=== PATIENT | male | born 1965 | race Caucasian/White ===

== ENCOUNTER 2018-01-25 16:43 | Emergency (ER) | payer MEDICARE ==
[2018-01-25] MEDS ORDERED: OMEP40CA48 PO (16:58)
[2018-01-25] MEDS ORDERED: ZIPR80CA PO (16:58)
--- NOTE | 2018-01-25 16:59 | ER Report ---
History and Physical Time Seen By MD: 16:57 Hx. of Stated Complaint: SUDDEN DIZZINESS A COUPLE HOURS AGO. HARD TO STAND, WALK (HARPER TRACEY MD) HPI/ROS CHIEF COMPLAINT: Dizziness HISTORY OF PRESENT ILLNESS: Patient is an 82-year-old male history of an [place] 6 years ago comes emergency prompt today with acute onset of positional vertiginous dizziness type symptoms he was walking to the park with his daughter and began to get acutely dizzy worse when he changes head position better when he sat down worse when he bent forward and felt a little bit better after walking around and sitting down for a few moments had some ice cream then went home felt a little better than he came back again patient states states was couple days been outside working in the heat to try to keep his fluids patient denies any chest pain shortness of breath nausea vomiting diarrhea fever chills since his symptoms are absolutely 100% completely reproducible with changes in head position REVIEW OF SYSTEMS: Respiratory: No cough, no dyspnea. Cardiovascular: No chest pain, no palpitations. Gastrointestinal: No vomiting, no abdominal pain. Musculoskeletal: No back pain. Remainder of the 14 system rev: Yes (HARPER TRACEY MD) Allergies: Coded Allergies: Penicillins (Verified Allergy, Unknown, 01/25/18) Home Meds Reported Medications Ziprasidone Hcl (GEODON) 80 Mg Capsule, 80 MG PO, CAPSULE 01/25/18 Omeprazole (OMEPRAZOLE) 40 Mg Capsule.dr, 40 MG PO BID, CAP 01/25/18 Reviewed Nurses Notes: Yes Old Medical Records Reviewed: Yes (HARPER TRACEY MD) Constitutional Vital Sign - Last 24 Hours 01/25/18 01/25/18 01/25/18 01/25/18 16:43 16:47 16:48 16:58 Temp 99.4 Pulse 92 98 94 Resp 18 20 B/P (MAP) 161/92 (115) 119/84 (96) 119/84 Pulse Ox 94 96 92 O2 Delivery Room Air 01/25/18 01/25/18 01/25/18 01/25/18 17:00 17:09 17:13 17:13 Pulse ??? Resp 18 B/P (MAP) ???/??? (0805) 114/84 (94) Pulse Ox 97 O2 Flow Rate 2.0 01/25/18 01/25/18 01/25/1801/25/18 17:28 17:30 17:43 17:58 Pulse ??? 84 87 Resp 13 30 B/P (MAP) 131/79 (96) Pulse Ox 98 98 01/25/18 01/25/18 01/25/18 01/25/18 18:03 18:18 18:23 18:30 Pulse 81 81 83 Resp 25 17 17 B/P (MAP) 114/85 (95) Pulse Ox 97 97 97 01/25/18 01/25/18 01/25/18 01/25/18 18:38 18:50 18:53 18:58 Pulse 84 76 78 Resp 20 21 26 B/P (MAP) 132/78 (96) Pulse Ox 97 97 96 01/25/18 01/25/18 01/25/18 01/25/18 19:00 19:05 19:30 19:35 Pulse 82 81 Resp 28 16 B/P (MAP) 121/78 (92) 121/77 (92) Pulse Ox 95 96 01/25/18 19:40 Pulse 76 Resp 19 Pulse Ox 96 (ANISH NIEVES DO) Physical Exam General Appearance: The patient is alert, has no immediate need for airway protection and no current signs of toxicity. Difficulty walking due to dizziness Eyes: Pupils equal and round no injection. Respiratory: Chest is non tender, lungs are clear to auscultation. Cardiac: regular rate and rhythm [ ] Gastrointestinal: Abdomen is soft and non tender, no masses, bowel sounds normal. Musculoskeletal: Neck: Neck is supple and non tender. Extremities have full range of motion and are non tender. Skin: No rashes or lesions. Neurological examination patient with no focal neurological deficits completely reproducible vertiginous symptoms when he looks to the right they are gone when he looks to the left there present worse with changes in head position no obvious vertical or horizontal nystagmus no other focal deficits cranial nerves II through XII fully intact GCS of 15 DIFFERENTIAL DIAGNOSIS: After history and physical exam differential diagnosis was considered for benign paroxysmal positional vertigo cardiac abnormality (HARPER TRACEY MD) Medical Decision Making Data Points Result Diagram: 01/25/18 1700 01/25/18 1700 Laboratory Hematology Test 01/25/18 17:00 01/25/18 18:07 Red Blood Count 5.69 M/uL (4.00-5.60) Mean Corpuscular Volume 81.1 fL (80.0-96.0) Mean Corpuscular Hemoglobin 27.6 pg (26.0-33.0) Mean Corpuscular Hemoglobin Concent 34.0 g/dL (32.0-36.0) Red Cell Distribution Width 14.0 % (11.5-14.5) Mean Platelet Volume 7.6 fL (7.2-11.1) Neutrophils (%) (Auto) 60.0 % (39.4-72.5) Lymphocytes (%) (Auto) 24.0 % (17.6-49.6) Monocytes (%) (Auto) 10.6 % (4.1-12.4) Eosinophils (%) (Auto) 3.0 % (0.4-6.7) Basophils (%) (Auto) 2.4 % (0.3-1.4) Nucleated RBC Relative Count (auto) 0.0 /100WBC Neutrophils # (Auto) 5.8 K/uL (2.0-7.4) Lymphocytes # (Auto) 2.3 K/uL (1.3-3.6) Monocytes # (Auto) 1.0 K/uL (0.3-1.0) Eosinophils # (Auto) 0.3 K/uL (0.0-0.5) Basophils # (Auto) 0.2 K/uL (0.0-0.1) Nucleated RBC Absolute Count (auto) 0.00 K/uL Sodium Level 142 mmol/L (137-145) Potassium Level 3.7 mmol/L (3.5-5.0) Chloride Level 107 mmol/L (98-107) Carbon Dioxide Level 23 mmol/L (22-30) Blood Urea Nitrogen 19 mg/dl (9-21) Creatinine 1.00 mg/dl (0.66-1.25) Glomerular Filtration Rate Calc > 60.0 Random Glucose 116 mg/dl (75-110) Calcium Level 9.1 mg/dl (8.4-10.2) Total Bilirubin 0.8 mg/dl (0.2-1.3) Aspartate Amino Transf (AST/SGOT) 47 U/L (0-35) Alanine Aminotransferase (ALT/SGPT) 46 U/L (0-56) Alkaline Phosphatase 83 U/L (0-126) Troponin I < 0.012 ng/ml Total Protein 7.4 g/dl (6.3-8.2) Albumin 4.2 g/dl (3.5-5.0) Serum Alcohol < 10 mg/dl Urine Color Yellow Urine Clarity Clear Urine pH 5.0 pH (4.8-9.5) Urine Specific [place] 1.028 Urine Protein Negative mg/dL (NEGATIVE) Urine Glucose (UA) Negative mg/dL (NEGATIVE) Urine Ketones Negative mg/dL (NEGATIVE) Urine Blood Negative (NEGATIVE) Urine Nitrite Negative (NEGATIVE) Urine Bilirubin Negative (NEGATIVE) Urine Urobilinogen 2.0 mg/dL (0.2-1.9) Urine Leukocyte Esterase Negative (NEGATIVE) Urine RBC None /HPF (0-2/HPF) Urine WBC 7 /HPF (0-5/HPF) Urine Squamous Epithelial Cells None /LPF (</=FEW) Urine Bacteria Negative /HPF (NONE-FEW) Urine Hyaline Casts Few /LPF (NONE-FEW) Urine Mucus Few /HPF (NONE-FEW) Urine Opiates Screen Negative Urine Barbiturates Screen Negative Ur Tricyclic Antidepressants Screen Negative Urine Phencyclidine Screen Negative Urine Amphetamines Screen Negative Urine Benzodiazepines Screen Negative Urine Cocaine Screen Negative Urine Cannabinoids Screen Negative Chemistry Test 01/25/18 17:00 01/25/18 18:07 White Blood Count 9.8 k/uL (4.5-11.0) Red Blood Count 5.69 M/uL (4.00-5.60) Hemoglobin 15.7 g/dL (14.0-18.0) Hematocrit 46.2 % (42.0-52.0) Mean Corpuscular Volume 81.1 fL (80.0-96.0) Mean Corpuscular Hemoglobin 27.6 pg (26.0-33.0) Mean Corpuscular Hemoglobin Concent 34.0 g/dL (32.0-36.0) Red Cell Distribution Width 14.0 % (11.5-14.5) Platelet Count 274 K/uL (150-450) Mean Platelet Volume 7.6 fL (7.2-11.1) Neutrophils (%) (Auto) 60.0 % (39.4-72.5) Lymphocytes (%) (Auto) 24.0 % (17.6-49.6) Monocytes (%) (Auto) 10.6 % (4.1-12.4) Eosinophils (%) (Auto) 3.0 % (0.4-6.7) Basophils (%) (Auto) 2.4 % (0.3-1.4) Nucleated RBC Relative Count (auto) 0.0 /100WBC Neutrophils # (Auto) 5.8 K/uL (2.0-7.4) Lymphocytes # (Auto) 2.3 K/uL (1.3-3.6) Monocytes # (Auto) 1.0 K/uL (0.3-1.0) Eosinophils # (Auto) 0.3 K/uL (0.0-0.5) Basophils # (Auto) 0.2 K/uL (0.0-0.1) Nucleated RBC Absolute Count (auto) 0.00 K/uL Glomerular Filtration Rate Calc > 60.0 Calcium Level 9.1 mg/dl (8.4-10.2) Total Bilirubin 0.8 mg/dl (0.2-1.3) Aspartate Amino Transf (AST/SGOT) 47 U/L (0-35) Alanine Aminotransferase (ALT/SGPT) 46 U/L (0-56) Alkaline Phosphatase 83 U/L (0-126) Troponin I < 0.012 ng/ml Total Protein 7.4 g/dl (6.3-8.2) Albumin 4.2 g/dl (3.5-5.0) Serum Alcohol < 10 mg/dl Urine Color Yellow Urine Clarity Clear Urine pH 5.0 pH (4.8-9.5) Urine Specific [place] 1.028 Urine Protein Negative mg/dL (NEGATIVE) Urine Glucose (UA) Negative mg/dL (NEGATIVE) Urine Ketones Negative mg/dL (NEGATIVE) Urine Blood Negative (NEGATIVE) Urine Nitrite Negative (NEGATIVE) Urine Bilirubin Negative (NEGATIVE) Urine Urobilinogen 2.0 mg/dL (0.2-1.9) Urine Leukocyte Esterase Negative (NEGATIVE) Urine RBC None /HPF (0-2/HPF) Urine WBC 7 /HPF (0-5/HPF) Urine Squamous Epithelial Cells None /LPF (</=FEW) Urine Bacteria Negative /HPF (NONE-FEW) Urine Hyaline Casts Few /LPF (NONE-FEW) Urine Mucus Few /HPF (NONE-FEW) Urine Opiates Screen Negative Urine Barbiturates Screen Negative Ur Tricyclic Antidepressants Screen Negative Urine Phencyclidine Screen Negative Urine Amphetamines Screen Negative Urine Benzodiazepines Screen Negative Urine Cocaine Screen Negative Urine Cannabinoids Screen Negative Toxicology Test 01/25/18 17:00 01/25/18 18:07 Serum Alcohol < 10 mg/dl Urine Opiates Screen Negative Urine Barbiturates Screen Negative Ur Tricyclic Antidepressants Screen Negative Urine Phencyclidine Screen Negative Urine Amphetamines Screen Negative Urine Benzodiazepines Screen Negative Urine Cocaine Screen Negative Urine Cannabinoids Screen Negative Urinalysis Test 01/25/18 18:07 Urine Color Yellow Urine Clarity Clear Urine pH 5.0 pH (4.8-9.5) Urine Specific [place] 1.028 Urine Protein Negative mg/dL (NEGATIVE) Urine Glucose (UA) Negative mg/dL (NEGATIVE) Urine Ketones Negative mg/dL (NEGATIVE) Urine Blood Negative (NEGATIVE) Urine Nitrite Negative (NEGATIVE) Urine Bilirubin Negative (NEGATIVE) Urine Urobilinogen 2.0 mg/dL (0.2-1.9) Urine Leukocyte Esterase Negative (NEGATIVE) Urine RBC None /HPF (0-2/HPF) Urine WBC 7 /HPF (0-5/HPF) Urine Squamous Epithelial Cells None /LPF (</=FEW) Urine Bacteria Negative /HPF (NONE-FEW) Urine Hyaline Casts Few /LPF (NONE-FEW) Urine Mucus Few /HPF (NONE-FEW) (ANISH NIEVES DO) EKG/Imaging Imaging X-ray: Two-view chest x-ray was obtained. I viewed the images myself on the PACS system. My interpretation of the images is: No infiltrate, no effusion, normal mediastinum, notable kyphosis. The radiologist interpretation had no clinically significant variation from this interpretation. (ANISH NIEVES DO) ED Course/Re-evaluation ED Course Care was assumed at shift change from Dr. Tracey with further studies pending. Patient's chest x-ray was unremarkable. His urine and urine tox screen were unremarkable. Patient woke up from the Valium dose that he received. He ambulated to the bathroom. Complaining of a headache. He was given Toradol 30 mg IV for his pain. Patient reports improvement of his headache. Decision to Disposition Date: Jan 25, 2018 Decision to Disposition Time: 18:44 (ANISH NIEVES DO) Depart Departure Latest Vital Signs Vital Signs Date Time Temp Pulse Resp B/P (MAP) Pulse Ox O2 Delivery O2 Flow Rate FiO2 01/25/18 19:40 76 19 96 01/25/18 19:30 121/77 (92) 01/25/18 17:13 2.0 01/25/18 16:48 99.4 Room Air (ANISH NIEVES DO) Impression: Primary Impression: Vertigo Additional Impression: Near syncope Condition: Improved Disposition: HOME OR SELF-CARE Referrals: RAMBO MATIAS JR, MD Patient Instructions: Vertigo (ED) Additional Instructions: Take meclizine 25 mg 3 times daily for dizziness Follow-up with primary care or Dr. Rambo Matias ENT specialist if unimproved in 3-5 days Problem Qualifiers HARPER TRACEY MD Jan 25, 2018 16:59 ANISH NIEVES DO Jan 25, 2018 18:47
[2018-01-25] MEDS ORDERED: DIAZEPAM 50 MG/10 ML MDV IVP ONE (17:00)
[2018-01-25] MEDS ORDERED: NS(*) 0.9% 1000 ML BAG 1,000 ML IV ONE (17:00)
[2018-01-25 17:09] LABS: PLATELET COUNT, AUTOMATED 274 K/uL (150-450)
--- NOTE | 2018-01-25 17:29 | EKG ---
[place] [facility] [place] SAAD SANTIAGO : [id number] MR: [id number] V: [id number] EXAM DATE: ORDERING PHYSICIAN: HARPER TRACEY TECHNOLOGIST: RICKIE Robins Reason : DIZZY Blood Pressure : / mmHG Vent. Rate : 101 BPM Atrial Rate : 101 BPM P-R Int : 136 ms QRS Dur : 088 ms QT Int : 348 ms P-R-T Axes : 041 015 027 degrees QTc Int : 451 ms Sinus tachycardia Possible left atrial enlargement No previous ECGs available Confirmed by GREGORIO AUGUSTIN ([id number]) on 01/26/2018 5:41:09 AM Referred By: ALEXY Confirmed By:GREGORIO AUGUSTIN
--- NOTE | 2018-01-25 17:53 | RADIOLOGY IMAGING REPORT ---
FACILITY: [facility] - [place] PATIENT NAME: Celso Pérez : 1965 MR: [id number] V: [id number] EXAM DATE: ORDERING PHYSICIAN: HARPER TRACEY TECHNOLOGIST: Location: [facility] - [place] Patient: Celso Pérez : 1965 Visit/Account:[id number] Date of Sevice: 01/25/2018 HISTORY: Chest pain DATE: 01/25/2018 4:56 PM TECHNIQUE: CHEST PA AND LAT COMPARISON: none FINDINGS: The cardiomediastinal silhouette is of normal size and contour. No pleural effusion. No pne umothorax. No consolidation. The lungs are adequately expanded. Thoracic kyphosis is moderately exagg erated. Bone density is diffusely decreased in the thoracic spine. There are numerous tacks from pres umed hernia repair. IMPRESSION: No acute findings. Report Dictated By: Abbey Lan MD at 01/25/2018 5:49 PM Report E-Signed By: Abbey Lan MD at 01/25/2018 5:49 PM WSN:[id number]
[2018-01-25] MEDS ORDERED: KETOROLAC 30 MG/ML VIAL IVP ONE (18:40)
[2018-01-25 19:30] VITALS: BP 121/77
== END 2018-01-25 20:00 | disposition home or self-care (01) ==
LOC: ER 16:49
DX: R42 Dizziness and giddiness (principal); R55 Syncope and collapse; R00.0 Tachycardia, unspecified
CPT/HCPCS: 71046; 80305; 81001; 84484; 85025; 93005; 96361; 96374; 96375; 99284; G0480; J1885; J3360; J7030; 80320; 82040; 82247; 82310; 82374; 82435; 82565; 82947; 84075; 84132; 84155; 84295; 84450; 84460; 84520

== ENCOUNTER 2018-01-28 09:09 | Inpatient (IN) | payer MEDICARE, MEDICAID ==
[~2018-01-28] VITALS: Ht 160 cm; Wt 83.5 kg
[~2018-01-28 09:09] MED LIST: OMEP40CA48 PO; ZIPR80CA PO
--- NOTE | 2018-01-28 09:14 | ER Report ---
History and Physical Time Seen By MD: 09:14 HPI/ROS 52-year-old male with a remote history of ureteral calculi and a past medical history significant for a mood disorder and GERD. He recently moved to [place] from [place] in early December. He presents to the emergency department with a 24-hour history of acute onset of right sided flank right lower quadrant pain radiating to his right groin. No trauma. No dysuria or hematuria. No fever or chills. Also with nausea and vomiting. He is having normal bowel movements. He describes the pain as 10 on a 10 and colicky in nature. He has no other complaints Allergies: Coded Allergies: Penicillins (Verified Allergy, Unknown, 01/25/18) Home Meds Reported Medications Ziprasidone Hcl (GEODON) 80 Mg Capsule, 80 MG PO, CAPSULE 01/25/18 Omeprazole (OMEPRAZOLE) 40 Mg Capsule.dr, 40 MG PO BID, CAP 01/25/18 Reviewed Nurses Notes: Yes Old Medical Records Reviewed: Yes Hx Smoking: No Smoking Status: Never Smoker Hx Substance Use Disorder: No Hx Alcohol Use: No Constitutional Vital Sign - Last 24 Hours 01/28/18 01/28/18 01/28/18 01/28/18 09:19 09:30 09:45 09:45 Temp 97.3 Pulse 67 67 65 Resp 16 B/P (MAP) 121/76 (91) 117/78 (91) 117/78 Pulse Ox 92 93 93 O2 Delivery Room Air 01/28/18 01/28/18 01/28/18 01/28/18 10:00 10:15 10:30 10:45 Pulse 67 70 69 66 B/P (MAP) 122/81 (95) 135/85 (102) Pulse Ox 92 92 92 92 01/28/18 01/28/18 01/28/18 01/28/18 11:00 11:15 11:33 11:45 Pulse 67 66 61 B/P (MAP) 123/89 (100) 131/75 (93) Pulse Ox 91 92 92 01/28/18 01/28/18 12:00 12:15 Pulse 63 67 B/P (MAP) 120/80 (93) Pulse Ox 93 88 Intake and Output 01/28/18 01/28/18 01/29/18 14:59 22:59 06:59 Intake Total 1000 ml Balance 1000 ml Physical Exam General Appearance: The patient is alert, has no immediate need for airway protection and no current signs of toxicity. Eyes: Pupils equal and round no injection. Respiratory: Chest is non tender, lungs are clear to auscultation. Cardiac: regular rate and rhythm Gastrointestinal: Abdomen is soft . RLQ TTP without rebound/guarding . Normal exam. No testicular TTP, no hernia MSK: TTP of the right flank Skin: No rashes or lesions. DIFFERENTIAL DIAGNOSIS: After history and physical exam differential diagnosis was considered for ureteral calculi, pyelonephritis, UTI, appendicitis Medical Decision Making Data Points Result Diagram: 01/28/18 0955 01/28/18 0955 Laboratory Hematology Test 01/28/18 09:10 01/28/18 09:55 Urine Color Yellow Urine Clarity Cloudy Urine pH 5.0 pH (4.8-9.5) Urine Specific [place] 1.020 Urine Protein 30 mg/dL (NEGATIVE) Urine Glucose (UA) Negative mg/dL (NEGATIVE) Urine Ketones Negative mg/dL (NEGATIVE) Urine Blood Large (NEGATIVE) Urine Nitrite Negative (NEGATIVE) Urine Bilirubin Negative (NEGATIVE) Urine Urobilinogen 2.0 mg/dL (0.2-1.9) Urine Leukocyte Esterase Negative (NEGATIVE) Urine RBC 413 /HPF (0-2/HPF) Urine WBC 4 /HPF (0-5/HPF) Urine Squamous Epithelial Cells None /LPF (</=FEW) Urine Bacteria Negative /HPF (NONE-FEW) Urine Mucus Few /HPF (NONE-FEW) Urine Yeast (Budding) Few /HPF Red Blood Count 5.65 M/uL (4.00-5.60) Mean Corpuscular Volume 82.4 fL (80.0-96.0) Mean Corpuscular Hemoglobin 27.7 pg (26.0-33.0) Mean Corpuscular Hemoglobin Concent 33.6 g/dL (32.0-36.0) Red Cell Distribution Width 13.6 % (11.5-14.5) Mean Platelet Volume 7.4 fL (7.2-11.1) Neutrophils (%) (Auto) 60.1 % (39.4-72.5) Lymphocytes (%) (Auto) 25.8 % (17.6-49.6) Monocytes (%) (Auto) 8.3 % (4.1-12.4) Eosinophils (%) (Auto) 4.1 % (0.4-6.7) Basophils (%) (Auto) 1.7 % (0.3-1.4) Nucleated RBC Relative Count (auto) 0.0 /100WBC Neutrophils # (Auto) 5.7 K/uL (2.0-7.4) Lymphocytes # (Auto) 2.5 K/uL (1.3-3.6) Monocytes # (Auto) 0.8 K/uL (0.3-1.0) Eosinophils # (Auto) 0.4 K/uL (0.0-0.5) Basophils # (Auto) 0.2 K/uL (0.0-0.1) Nucleated RBC Absolute Count (auto) 0.00 K/uL Sodium Level 139 mmol/L (137-145) Potassium Level 4.4 mmol/L (3.5-5.0) Chloride Level 108 mmol/L (98-107) Carbon Dioxide Level 20 mmol/L (22-30) Blood Urea Nitrogen 11 mg/dl (9-21) Creatinine 0.80 mg/dl (0.66-1.25) Glomerular Filtration Rate Calc > 60.0 Random Glucose 107 mg/dl (75-110) Calcium Level 8.4 mg/dl (8.4-10.2) Total Bilirubin 0.5 mg/dl (0.2-1.3) Aspartate Amino Transf (AST/SGOT) 46 U/L (0-35) Alanine Aminotransferase (ALT/SGPT) 34 U/L (0-56) Alkaline Phosphatase 85 U/L (0-126) Total Protein 6.9 g/dl (6.3-8.2) Albumin 3.8 g/dl (3.5-5.0) Lipase 193 U/L (23-300) Chemistry Test 01/28/18 09:10 01/28/18 09:55 Urine Color Yellow Urine Clarity Cloudy Urine pH 5.0 pH (4.8-9.5) Urine Specific [place] 1.020 Urine Protein 30 mg/dL (NEGATIVE) Urine Glucose (UA) Negative mg/dL (NEGATIVE) Urine Ketones Negative mg/dL (NEGATIVE) Urine Blood Large (NEGATIVE) Urine Nitrite Negative (NEGATIVE) Urine Bilirubin Negative (NEGATIVE) Urine Urobilinogen 2.0 mg/dL (0.2-1.9) Urine Leukocyte Esterase Negative (NEGATIVE) Urine RBC 413 /HPF (0-2/HPF) Urine WBC 4 /HPF (0-5/HPF) Urine Squamous Epithelial Cells None /LPF (</=FEW) Urine Bacteria Negative /HPF (NONE-FEW) Urine Mucus Few /HPF (NONE-FEW) Urine Yeast (Budding) Few /HPF White Blood Count 9.5 k/uL (4.5-11.0) Red Blood Count 5.65 M/uL (4.00-5.60) Hemoglobin 15.6 g/dL (14.0-18.0) Hematocrit 46.6 % (42.0-52.0) Mean Corpuscular Volume 82.4 fL (80.0-96.0) Mean Corpuscular Hemoglobin 27.7 pg (26.0-33.0) Mean Corpuscular Hemoglobin Concent 33.6 g/dL (32.0-36.0) Red Cell Distribution Width 13.6 % (11.5-14.5) Platelet Count 263 K/uL (150-450) Mean Platelet Volume 7.4 fL (7.2-11.1) Neutrophils (%) (Auto) 60.1 % (39.4-72.5) Lymphocytes (%) (Auto) 25.8 % (17.6-49.6) Monocytes (%) (Auto) 8.3 % (4.1-12.4) Eosinophils (%) (Auto) 4.1 % (0.4-6.7) Basophils (%) (Auto) 1.7 % (0.3-1.4) Nucleated RBC Relative Count (auto) 0.0 /100WBC Neutrophils # (Auto) 5.7 K/uL (2.0-7.4) Lymphocytes # (Auto) 2.5 K/uL (1.3-3.6) Monocytes # (Auto) 0.8 K/uL (0.3-1.0) Eosinophils # (Auto) 0.4 K/uL (0.0-0.5) Basophils # (Auto) 0.2 K/uL (0.0-0.1) Nucleated RBC Absolute Count (auto) 0.00 K/uL Glomerular Filtration Rate Calc > 60.0 Calcium Level 8.4 mg/dl (8.4-10.2) Total Bilirubin 0.5 mg/dl (0.2-1.3) Aspartate Amino Transf (AST/SGOT) 46 U/L (0-35) Alanine Aminotransferase (ALT/SGPT) 34 U/L (0-56) Alkaline Phosphatase 85 U/L (0-126) Total Protein 6.9 g/dl (6.3-8.2) Albumin 3.8 g/dl (3.5-5.0) Lipase 193 U/L (23-300) Urinalysis Test 01/28/18 09:10 Urine Color Yellow Urine Clarity Cloudy Urine pH 5.0 pH (4.8-9.5) Urine Specific [place] 1.020 Urine Protein 30 mg/dL (NEGATIVE) Urine Glucose (UA) Negative mg/dL (NEGATIVE) Urine Ketones Negative mg/dL (NEGATIVE) Urine Blood Large (NEGATIVE) Urine Nitrite Negative (NEGATIVE) Urine Bilirubin Negative (NEGATIVE) Urine Urobilinogen 2.0 mg/dL (0.2-1.9) Urine Leukocyte Esterase Negative (NEGATIVE) Urine RBC 413 /HPF (0-2/HPF) Urine WBC 4 /HPF (0-5/HPF) Urine Squamous Epithelial Cells None /LPF (</=FEW) Urine Bacteria Negative /HPF (NONE-FEW) Urine Mucus Few /HPF (NONE-FEW) Urine Yeast (Budding) Few /HPF EKG/Imaging Imaging Results: CT scan of the abdomen/pelvis was obtained. The results of the study are 8mm ureteral calculi in the proximal right ureter. The study was read by the radiologist. I viewed the images myself on the PACS system. ED Course/Re-evaluation ED Course Presents with right-sided flank and abdominal pain. Otherwise stable. Found to have an 8 mm proximal right ureteral calculi. Still able to urinate. Pain somewhat controlled with morphine and Toradol. I spoke with Dr. Treadwell about the case and he states he will admit the patient for fluid hydration and pain control and likely definitive care of the stone tomorrow. Decision to Disposition Date: Jan 28, 2018 Decision to Disposition Time: 15:56 Depart Departure Latest Vital Signs Vital Signs Date Time Temp Pulse Resp B/P (MAP) Pulse Ox O2 Delivery O2 Flow Rate FiO2 01/28/18 12:15 67 88 01/28/18 12:00 120/80 (93) 01/28/18 09:45 97.3 16 Room Air Impression: Primary Impression: Ureter, calculus Condition: Improved Disposition: Admitted from ER RADHA TAPIA MD Jan 28, 2018 09:14
[2018-01-28] MEDS ORDERED: NS(*) 0.9% 1000 ML BAG 1,000 ML IV ONE (09:35)
[2018-01-28] MEDS ORDERED: ONDANSETRON 4 MG/2 ML VIAL IVP ONE (09:35)
[2018-01-28 10:07] LABS: PLATELET COUNT, AUTOMATED 263 K/uL (150-450)
[2018-01-28] MEDS ORDERED: MORPHINE 4 MG/ML SDV IVP ONE (11:55)
[2018-01-28] MEDS ORDERED: ACETAMINOPHEN 500 MG TAB PO ONE (12:45)
[2018-01-28] MEDS ORDERED: IOPAMIDOL 76% 100 ML INFUS BTL 100 ML ONE (12:59)
--- NOTE | 2018-01-28 14:26 | RADIOLOGY IMAGING REPORT ---
FACILITY: [facility] PATIENT NAME: Celso Pérez : 1965 MR: [id number] V: [id number] EXAM DATE: ORDERING PHYSICIAN: RADHA TAPIA TECHNOLOGIST: Location: [facility] Patient: Celso Pérez : 1965 Visit/Account:[id number] Date of Sevice: 01/28/2018 COMPUTED TOMOGRAPHY OF THE Abdomen and Pelvis with CONTRAST INDICATION: Left lower quadrant pain with nausea and vomiting. TECHNIQUE: Contiguous axial 3.[address] images were obtained through the abdomen and pelvis after 80 c c [id number]. Coronal and sagittal reformatted images were submitted. COMPARISON: None. FINDINGS: Lung bases: Mild atelectasis at the lung bases. Liver and hepatic vasculature: Diffusely decreased liver parenchymal density. Focal fatty sparing ad jacent to the gallbladder. Well-opacified hepatic and portal veins. Gallbladder and bile ducts: Normal Spleen: Normal Pancreas: Normal Adrenals: Normal Kidneys, ureters and bladder: An 8 mm right ureteral calculus in the proximal right ureter results i n mild hydronephrosis. Retroperitoneum and aorta: Mild scattered aortic atherosclerosis. GI tract, mesentery and peritoneum: There is a small hiatal hernia and postsurgical change mid esopha geal hiatus. Small bowel in the mid upper abdomen is mildly prominent with air-fluid level. This [place] l loop measures 3.3 cm in diameter. Normal volume of stool in the colon. There are few scattered colo haley diverticula most prominent in the sigmoid region. No findings of diverticulitis. Prostate: Unremarkable. Bones and soft tissues: No acute osseous abnormality. IMPRESSION: 1. 8 mm obstructive calculus in the proximal right ureter results in mild hydronephrosis. 2. A proximal jejunal loop in the upper midabdomen is mildly prominent, but there is a gentle downstr eam tapering and no clear evidence of bowel obstruction 3. diverticulosis without findings of diverticulitis 4. hepatic steatosis. One of the following dose optimization techniques was utilized in the performance of this exam: Autom ated exposure control; adjustment of the mA and/or kV according to the patient's size; or use of an i terative reconstruction technique. Specific details can be referenced in the facility's radiology C T exam operational policy. Report Dictated By: Abbey Lan MD at 01/28/2018 2:16 PM Report E-Signed By: Abbey Lan MD at 01/28/2018 2:22 PM [id number]
[2018-01-28] MEDS ORDERED: KETOROLAC 30 MG/ML VIAL IVP ONE (15:45)
[2018-01-28 16:52] VITALS: BP 128/78
[2018-01-28] MEDS ORDERED: NALOXONE HCL 0.4 MG/ML VIAL IVP PRN (17:45)
[2018-01-28] MEDS ORDERED: HYDROmorphone PCA 6 MG/30 ML IV PRN (17:45)
[2018-01-28] MEDS: LR(*) 1000 ML BAG 1,000 ML IV PRN (18:22)
--- NOTE | 2018-01-28 19:29 | Hospitalist Consultation ---
History of Present Illness Requesting Physician Dr. Treadwell Reason for Consult Manage medications. Chief Complaint R flank and abdominal pain. History of Present Illness The patient is a 52-year-old male with a remote history of ureteral calculi and a past medical history significant for bipolar disorder, Hsu's esophagus and GERD. He recently moved to [place] from [place] in early December to be with his girlfriend. He presents with a 24-hour history of acute onset of right sided flank and right lower quadrant pain radiating to his right groin. No dysuria or hematuria. No fever or chills.He has associated nausea and vomiting. He describes the pain as 10 on a 10 and colicky in nature. He has no other complaints. History Problems: (1) Wrist fracture, right Status: Resolved Comment: S/P surgical repair. (2) Bipolar disorder Status: Chronic (3) Nephrolithiasis Status: Acute (4) GERD (gastroesophageal reflux disease) Status: Chronic (5) Barretts esophagus Status: Chronic (6) Asthma Status: Chronic (7) OK (myocardial infarction) Status: Resolved Comment: "Small OK". No stents. Follow up stress test was okay per the patient' s report. (8) Seizure Status: Resolved Comment: Has had 2 in his life. Last one was 2000 (9) Hx of appendectomy Status: Resolved (10) History of esophageal surgery Status: Resolved (11) Abdominal wall hernia Status: Resolved Comment: L abdominal wall X 2. Home Meds Reported Medications Ziprasidone Hcl (GEODON) 80 Mg Capsule, 80 MG PO QHS, CAPSULE 01/25/18 Omeprazole (OMEPRAZOLE) 40 Mg Capsule.dr, 40 MG PO BID, CAP 01/25/18 Allergies: Coded Allergies: Penicillins (Verified Allergy, Unknown, 01/25/18) Patient History: FH: breast cancer BROTHER OR SISTER FH: lung cancer MOTHER FH: myocardial infarction FATHER FHx: mental illness BROTHER OR SISTER Kidney stone BROTHER OR SISTER Other Social/Family Hx The patient is disabled. He moved to [place] to be with his girlfriend earlier in December. He does not drink or use tobacco products. Hx Smoking: No Smoking Status: Never Smoker Caffeine Intake: Coffee, Soda Hx Alcohol Use: No Hx Substance Use Disorder: No History of IV Drug Use: No Review of Systems All Systems Reviewed/Normal: Yes, Except as Noted Constitutional: No Fever, No Chills Cardiovascular: No Chest Pain Respiratory: No Shortness of Breath Gastrointestinal: Abdominal Pain, Other (Flank pain, right.) Genitourinary: No Dysuria, No Hematuria Musculoskeletal: Pain (R flank.) Psychiatric: Depression (Bipolar.) Exam Vital Signs Vital Signs Date Time Temp Pulse Resp B/P (MAP) Pulse Ox O2 Delivery O2 Flow Rate FiO2 01/28/18 18:42 16 90 01/28/18 16:52 96.5 66 128/78 (95) Room Air General Appearance: Alert, Awake, No Acute Distress, Afebrile Neuro: No Gross deficits Eyes: PERRLA Cardiovascular: Regular Rate and Rhythm Respiratory: Clear to Auscultation GI: Abd Soft and Non-Tender Extremities: Warm, Perfused Integumentary: Skin Intact without Lesion / Mass Psych: Appropriate Mood & Affect Medical Decision Making Data Points Result Diagram: 01/28/18 0955 01/28/18 0955 Item Value Date Time Urine Color Yellow 01/28/18 0910 Urine Clarity Cloudy 01/28/18 0910 Urine pH 5.0 pH 01/28/18 0910 Urine Specific [place] 1.020 01/28/18 0910 Urine Glucose (UA) Negative mg/dL 01/28/18 0910 Urine Protein 30 mg/dL 01/28/18 0910 Urine Ketones Negative mg/dL 01/28/18 0910 Urine Blood Large 01/28/18 0910 Urine Nitrite Negative 01/28/18 0910 Urine Bilirubin Negative 01/28/18 0910 Urine Urobilinogen 2.0 mg/dL 01/28/18 0910 Urine Leukocyte Esterase Negative 01/28/18 0910 Urine RBC 413 /HPF 01/28/18 0910 Urine WBC 4 /HPF 01/28/18 0910 Urine Squamous Epithelial Cells None /LPF 01/28/18 0910 Urine Bacteria Negative /HPF 01/28/18 0910 Urine Mucus Few /HPF 01/28/18 0910 Urine Yeast (Budding) Few /HPF H 01/28/18 0910 Pre-Admit Course ED Medications Toradol, morphine sulfate, Zofran, NS. Assessment and Plan Problems: (1) Nephrolithiasis Status: Acute Assessment & Plan: The patient has a R ureteral stone. Dr. Treadwell has admitted him for pain control and plans to take him to the OR on Tuesday. EKG and CXR ordered for preop clearance. (2) Bipolar disorder Status: Chronic Assessment & Plan: The patient takes Geodon 80mg daily. He has been out for a month. Will restart at 40mg tonight and increase to 80mg tomorrow. He will need to establish with a PCP and mental health care provider in [place]. (3) Barretts esophagus Status: Chronic Assessment & Plan: He takes omeprazole 40mg bid at home. Will place on pantoprazole 40mg bid here. (4) GERD (gastroesophageal reflux disease) Status: Chronic Assessment & Plan: See above. (5) Hx of myocardial infarction Status: Resolved Assessment & Plan: The patient states he had a "small" OK in 2011. He has not had issues since. Currently on no medications for CAD. Time Spent on Plan of Care: < 30 min Venous Thromboembolism Antithrombotics Is Pt On Any Antithrombotics?: No Prophylaxis Tx Contraindicated Pharmacological Contraindicati: Surgical Contraindication Mechanical Contraindications: Pt at Low Risk for VTE Exam Sepsis Risk: No Definite Risk QUETA AUGUSTIN MD Jan 28, 2018 19:29
[2018-01-28] MEDS: ONDANSETRON 4 MG/2 ML VIAL IVP PRN (20:50)
[2018-01-28] MEDS: PANTOPRAZOLE SOD 40 MG TABEC PO SCH (20:50)
[2018-01-28] MEDS ORDERED: ZIPRASIDONE 20 MG CAP PO ONE (21:00)
[2018-01-28] MEDS: ACETAMINOPHEN 500 MG TAB PO PRN (21:21)
[2018-01-28 21:22] VITALS: BP 105/75
[2018-01-29] MEDS: LR(*) 1000 ML BAG 1,000 ML IV PRN ×2 (01:32→08:55)
[2018-01-29 04:37] VITALS: BP 107/79
--- NOTE | 2018-01-29 07:08 | RADIOLOGY IMAGING REPORT ---
FACILITY: [facility] PATIENT NAME: Celso Pérez : 1965 MR: [id number] V: [id number] EXAM DATE: ORDERING PHYSICIAN: QUETA AUGUSTIN TECHNOLOGIST: Location: [facility] - [place] Patient: Celso Pérez : 1965 Visit/Account:[id number] Date of Sevice: 01/29/2018 CHEST SINGLE AP HISTORY: Preop. Right ureteral calculus. COMPARISON: 01/25/2018 FINDINGS: Cardiomediastinal contours: Normal Lungs and pleura: Normal Bones/soft tissues: Normal Other findings: None significant IMPRESSION: 1. No acute cardiopulmonary disease. Report Dictated By: Oseas Smiley MD at 01/29/2018 7:02 AM Report E-Signed By: Oseas Smiley MD at 01/29/2018 7:03 AM WSN:[id number]
[2018-01-29 08:48] VITALS: BP 103/70
[2018-01-29] MEDS: TAMSULOSIN HCL 0.4 MG CAP PO SCH (08:50)
[2018-01-29] MEDS: PANTOPRAZOLE SOD 40 MG TABEC PO SCH ×2 (08:50→20:53)
--- NOTE | 2018-01-29 09:14 | Hospitalist Progress Note ---
Subjective Progress Notes Subjective No cp/sob. Physical Exam Vital Signs Date Time Temp Pulse Resp B/P (MAP) Pulse Ox O2 Delivery O2 Flow Rate FiO2 01/29/18 08:48 97.8 62 14 103/70 (81) 96 Nasal Cannula 1.0 Intake and Output 01/30/18 06:59 Output Total 150 ml Balance -150 ml Output Urine Total 150 ml General Appearance: Alert, Awake, No Acute Distress GI: Other (soft, non-distended, mild LUQ pain with palpation) : No CVA Tenderness Result Diagram: 01/28/1895401/28/18954 Assessment and Plan Problems: (1) Nephrolithiasis Status: Acute Assessment & Plan: The patient has a R ureteral stone. Dr. Treadwell has admitted him for pain control and plans to take him to the OR on 01/30. EKG ordered for preop clearance. CXR is clear. (2) Bipolar disorder Status: Chronic Assessment & Plan: The patient takes Geodon 80mg daily. He has been out for a month. Restarted at 40mg on 01/28 and increased to 80mg. He will need to establish with a PCP and mental health care provider in [place]. (3) Barretts esophagus Status: Chronic Assessment & Plan: He takes omeprazole 40mg bid at home. On pantoprazole 40mg bid here. (4) GERD (gastroesophageal reflux disease) Status: Chronic Assessment & Plan: See above. (5) Hx of myocardial infarction Status: Resolved Assessment & Plan: The patient states he had a "small" DE in 2011. He has not had issues since. Currently on no medications for CAD. Exam Sepsis Risk: No Definite Risk MANUELITO BUCK MD Jan 29, 2018 09:14
[2018-01-29 10:39] VITALS: Ht 160 cm; Wt 83.5 kg
[2018-01-29 11:36] VITALS: BP 113/71
--- NOTE | 2018-01-29 12:04 | EKG ---
FAC[place] [facility] [place] PATIENT NAME: SAAD SANTIAGO : [id number] MR: [id number] V: [id number] EXAM DATE: ORDERING PHYSICIAN: QUETA AUGUSTIN TECHNOLOGIST: NICHOL Robins Reason : PRE OP Blood Pressure : / mmHG Vent. Rate : 059 BPM Atrial Rate : 059 BPM P-R Int : 158 ms QRS Dur : 088 ms QT Int : 422 ms P-R-T Axes : 044 038 030 degrees QTc Int : 417 ms Sinus bradycardia Otherwise normal ECG When compared with ECG of 25-JAN-2018 17:03, Vent. rate has decreased BY 42 BPM Confirmed by MANUELITO BUCK ([id number]) on 01/29/2018 2:19:04 PM Referred By: IRLANDA Confirmed By:MANUELITO BUCK
[2018-01-29 15:48] VITALS: BP 130/82
[2018-01-29] MEDS ORDERED: LR(*) 1000 ML BAG 1,000 ML IV PRN (15:54)
[2018-01-29] MEDS: ALBUTEROL 1.25 MG/3ML NEB NEB SCH ×2 (18:42→21:54)
[2018-01-29 19:34] VITALS: BP 145/92
[2018-01-29] MEDS: ZIPRASIDONE 20 MG CAP PO SCH (20:53)
[2018-01-29] MEDS: ONDANSETRON 4 MG/2 ML VIAL IVP PRN (22:34)
[2018-01-29 22:36] VITALS: BP 157/81
[2018-01-30] VITALS (14 sets, daily range): BP systolic 121–150; BP diastolic 70–96
[2018-01-30] MEDS: ALBUTEROL 1.25 MG/3ML NEB NEB SCH ×7 (01:33→21:34)
[2018-01-30] MEDS: ONDANSETRON 4 MG/2 ML VIAL IVP PRN (05:01)
[2018-01-30] MEDS: PANTOPRAZOLE SOD 40 MG TABEC PO SCH ×2 (08:21→20:31)
[2018-01-30] MEDS: TAMSULOSIN HCL 0.4 MG CAP PO SCH (08:21)
--- NOTE | 2018-01-30 08:28 | Hospitalist Progress Note ---
Subjective Progress Notes Subjective He has no concerns this morning. He is going to surgery today with Dr. Treadwell. Patient Complains of: Cardiovascular: No: Chest Pain Respiratory: No: Shortness of Breath Physical Exam Vital Signs Date Time Temp Pulse Resp B/P (MAP) Pulse Ox O2 Delivery O2 Flow Rate FiO2 01/30/18 08:08 16 94 01/30/18 07:58 98.1 75 143/96 (112) Nasal Cannula 1.0 Intake and Output 01/31/18 06:59 Output Total 975 ml Balance -975 ml Output Urine Total 975 ml # Voids 1 General Appearance: Alert, Awake, No Acute Distress, Afebrile Neuro: No Gross deficits Cardiovascular: Regular Rate and Rhythm Respiratory: No Respiratory Distress, Clear to Auscultation Psych: Alert & Oriented X3, Appropriate Mood & Affect Result Diagram: 01/28/1895401/28/18954 Assessment and Plan Problems: (1) Nephrolithiasis Status: Acute Assessment & Plan: The patient has a R ureteral stone. Dr. Treadwell has admitted him for pain control and plans to take him to the OR on 01/30. EKG ordered for preop clearance. CXR is clear. (2) Bipolar disorder Status: Chronic Assessment & Plan: The patient takes Geodon 80mg daily. He has been out for a month. Restarted at 40mg on 01/28 and increased to 80mg. He will need to establish with a PCP and mental health care provider in [place]. (3) Barretts esophagus Status: Chronic Assessment & Plan: He takes omeprazole 40mg bid at home. On pantoprazole 40mg bid here. (4) GERD (gastroesophageal reflux disease) Status: Chronic Assessment & Plan: See above. (5) Hx of myocardial infarction Status: Resolved Assessment & Plan: The patient states he had a "small" [place] in 2011. He has not had issues since. Currently on no medications for CAD. Exam Sepsis Risk: No Definite Risk JOS EG BROWN NONPROFIT MANAGER Jan 30, 2018 08:28
[2018-01-30] MEDS ORDERED: NORMOSOL R SOLN(*) 1000 ML BAG 1,000 ML IV ONE (09:05)
[2018-01-30] MEDS ORDERED: LIDOCAINE MPF 1% 5 ML VIAL ONE (10:57)
[2018-01-30] MEDS ORDERED: PROPOFOL EMUL(*) 10MG/ML 20 ML 20 ML ONE (10:57)
[2018-01-30] MEDS ORDERED: DEXAMETHASONE SOD 4 MG/ML VIAL ONE (10:57)
[2018-01-30] MEDS ORDERED: fentaNYL CITR 100 MCG/2 ML AMP ONE ×2 (10:57→10:58)
[2018-01-30] MEDS ORDERED: ONDANSETRON 4 MG/2 ML VIAL ONE (10:57)
[2018-01-30] MEDS ORDERED: LEVOFLOXACIN/D5W*500 MG/100 ML 100 ML IVPB ONE (12:49)
[2018-01-30] MEDS ORDERED: LIDOCAINE/SOD BICARB 8.4% SYR ONE (13:03)
[2018-01-30] MEDS ORDERED: IOPAMIDOL-200 50 ML VIAL IS ONE (13:13)
[2018-01-30] MEDS ORDERED: LIDOCAINE MPF 4% 200MG/5ML AMP ONE (13:47)
[2018-01-30] MEDS ORDERED: LIDOCAINE 4% SOLN 50 ML BTL TP ONE (13:48)
--- NOTE | 2018-01-30 14:42 | RADIOLOGY IMAGING REPORT ---
FACILITY: [facility] PATIENT NAME: Celso Pérez : 1965 MR: [id number] V: [id number] EXAM DATE: ORDERING PHYSICIAN: SAMUEL HUDSON TECHNOLOGIST: Location: [facility] [place] Patient: Celso Pérez : 1965 Visit/Account:[id number] Date of Sevice: 01/30/2018 Technique: RETROGRADE PYELOGRAM HISTORY: STENT PLACEMENT Comparison studies: None FINDINGS: 4 operative fluoroscopic images were obtained of the right hemiabdomen and pelvis. There h as been placement of a right-sided internal ureteral stent with gross anatomic alignment. Ventral he rnia repair mesh is noted. Fluoroscopy time: 0.03 seconds IMPRESSION: 1. Intraoperative fluoroscopic radiographs as described above. Please see operative report for furt her details. Report Dictated By: Bry Bauman DO at 01/30/2018 2:36 PM Report E-Signed By: Bry Bauman DO at 01/30/2018 2:38 PM WSN:[id number]
[2018-01-30] MEDS ORDERED: KETAMINE HCL 500 MG/10 ML VIAL ONE (15:06)
[2018-01-30] MEDS ORDERED: ACETAMIN/CODEINE #3 300-30 MG PO PRN (16:10)
[2018-01-30] MEDS ORDERED: ZOLPIDEM TARTRATE 5 MG TAB PO PRN (16:10)
[2018-01-30] MEDS ORDERED: ONDANSETRON 4 MG/2 ML VIAL IVP PRN (16:10)
[2018-01-30] MEDS ORDERED: FLUSH 10 ML SYR IVP PRN (16:10)
[2018-01-30] MEDS ORDERED: LR(*) 1000 ML BAG 1,000 ML IV PRN (16:10)
[2018-01-30] MEDS ORDERED: PROMETHAZINE 25 MG/ML 1 ML AMP IVP PRN (16:20)
[2018-01-30] MEDS: ACETAMINOPHEN 500 MG TAB PO PRN (16:49)
[2018-01-30] MEDS: DOCUSATE SODIUM 100 MG CAP PO SCH (20:31)
[2018-01-30] MEDS: FAMOTIDINE 20 MG TAB PO SCH (20:31)
[2018-01-30] MEDS: ZIPRASIDONE 20 MG CAP PO SCH (20:31)
[2018-01-30] MEDS: NEOMYCIN/POLYMYX/BACITR OINT 1 PACKET TP SCH (20:32)
[2018-01-31 02:55] VITALS: BP 133/71
[2018-01-31] MEDS: ALBUTEROL 1.25 MG/3ML NEB NEB SCH ×2 (05:30→09:07)
[2018-01-31 07:23] VITALS: BP 139/75
[2018-01-31] MEDS ORDERED: MAGNESIUM HYDROXIDE* 30ML UDCP PO ONE (07:45)
--- NOTE | 2018-01-31 08:39 | Hospitalist Progress Note ---
Subjective Progress Notes Subjective He has no complaints this morning. He had no acute events overnight. Patient Complains of: Cardiovascular: No: Chest Pain Respiratory: No: Shortness of Breath Physical Exam Vital Signs Date Time Temp Pulse Resp B/P (MAP) Pulse Ox O2 Delivery O2 Flow Rate FiO2 01/31/18 07:29 16 92 01/31/18 07:27 Room Air 01/31/18 07:23 97.7 82 139/75 (96) 01/31/18 05:25 0.5 Intake and Output 02/01/18 06:59 Output Total 250 ml Balance -250 ml Output Urine Total 250 ml # Voids 1 General Appearance: Alert, Awake, No Acute Distress, Afebrile Neuro: No Gross deficits Cardiovascular: Regular Rate and Rhythm Respiratory: No Respiratory Distress, Clear to Auscultation Psych: Alert & Oriented X3, Appropriate Mood & Affect Result Diagram: 01/28/1895401/28/18954 Assessment and Plan Problems: (1) Nephrolithiasis Status: Acute Assessment & Plan: The patient has a R ureteral stone. Dr. Treadwell has admitted him for pain control and plans to take him to the OR on 01/30. EKG ordered for preop clearance. CXR is clear. (2) Bipolar disorder Status: Chronic Assessment & Plan: The patient takes Geodon 80mg daily. He has been out for a month. Restarted at 40mg on 01/28 and increased to 80mg. He will need to establish with a PCP and mental health care provider in [place]. He was given a list of providers to choose from in [place]. (3) Barretts esophagus Status: Chronic Assessment & Plan: He takes omeprazole 40mg bid at home. On pantoprazole 40mg bid here. (4) GERD (gastroesophageal reflux disease) Status: Chronic Assessment & Plan: See above. (5) Hx of myocardial infarction Status: Resolved Assessment & Plan: The patient states he had a "small" [place] in 2011. He has not had issues since. Currently on no medications for CAD. Exam Sepsis Risk: No Definite Risk JOSE G BROWN ANIMAL LABORATORY HELPER Jan 31, 2018 08:39
[2018-01-31] MEDS: FAMOTIDINE 20 MG TAB PO SCH (09:16)
[2018-01-31] MEDS: DOCUSATE SODIUM 100 MG CAP PO SCH (09:16)
[2018-01-31] MEDS: NEOMYCIN/POLYMYX/BACITR OINT 1 PACKET TP SCH (09:16)
[2018-01-31] MEDS: TAMSULOSIN HCL 0.4 MG CAP PO SCH (09:16)
[2018-01-31] MEDS: PANTOPRAZOLE SOD 40 MG TABEC PO SCH (09:16)
[2018-01-31] MEDS ORDERED: PHEN200T32 PO (10:09)
[2018-01-31] MEDS ORDERED: CEPH500T7 PO (10:11)
[2018-01-31] MEDS ORDERED: HYDR-6016 PO (10:15)
[2018-01-31 11:25] VITALS: BP 129/66
[2018-01-31] MEDS ORDERED: LEVOFLOXACIN 500 MG TAB PO SCH (13:00)
--- NOTE | 2018-01-31 17:22 | OPERATIVE REPORT 1 ---
EVENT DATE: January 30, 2018 SURGEON: Harley Treadwell MD ANESTHESIOLOGIST: Kvng Castanon MD ANESTHESIA: General anesthetic. PREOPERATIVE DIAGNOSIS Left upper ureterolithiasis with associated severe colic. POSTOPERATIVE DIAGNOSIS Left upper ureterolithiasis with associated severe colic. PROCEDURES PERFORMED 1. Cystourethroscopy. 2. Manipulation of left ureteral stone. 3. Left ureteral stent placement. 4. Left extracorporeal shock wave lithotripsy. DESCRIPTION OF PROCEDURE Under general anesthetic, the patient was prepped and draped in the extended lithotomy position. The 21 panendoscope admitted through the urethra into the bladder. The urethra was normal. The prostate showed trilobar hyperplasia with obstruction. Bladder was normal. Trigone and ureteral orifices were normal. The 10 cone tip was passed up the right collecting system and dislodged the stone after instilling the 4% Xylocaine jelly. The stent was placed, 6-Slovak x 26 cm PercuFlex Plus. The patient was transferred to the stone treatment unit. The stone in the upper ureteropelvic junction area was treated with a total of 3000 shocks, progressing from low to high kV fairly rapidly. Patient tolerated the procedure satisfactorily and returned to the recovery room in satisfactory condition. This is a 52-year-old white male complaining of severe right ureterorenal colic. Patient was admitted to my service this past Tuesday. Patient has improved in the hospital and requests further evaluation and therapy. See operative note for details. Plan followup in approximately one week to reevaluate the results of therapy. Patient will be discharged home on Cipro, Protonix, Pyridium, and [place] therapy in addition to his usual medications. MTDD
[2018-02-08] MEDS ORDERED: OMEP-125 PO (11:20)
[2018-02-08] MEDS ORDERED: ZIPR40CA12 PO (11:20)
[2018-02-08] MEDS ORDERED: OMEP40CA48 PO (16:54)
[2018-02-16] MEDS ORDERED: OXYB10TA21 PO (14:20)
== END 2018-01-31 13:10 | disposition home or self-care (01) | DRG 691 ==
LOC: ER 09:16 → UNDOADMIN 16:03 → MED 16:03 → OBSVTOIN 01-30 16:02 → UNDODISIN 01-31 13:10
PROC: 0TF7XZZ Fragmentation in Left Ureter, External Approach (ICD-10-PCS; principal; 2018-01-30 13:29)
PROC: 0T778DZ Dilation of Left Ureter with Intraluminal Device, Via Natural or Artificial Opening Endoscopic (ICD-10-PCS; 2018-01-30 13:29)
DX: N13.2 Hydronephrosis with renal and ureteral calculous obstruction (principal); F39 Unspecified mood [affective] disorder; K21.9 Gastro-esophageal reflux disease without esophagitis; F31.9 Bipolar disorder, unspecified; K22.70 Barrett's esophagus without dysplasia; J45.909 Unspecified asthma, uncomplicated; I25.2 Old myocardial infarction; Z88.0 Allergy status to penicillin
CPT/HCPCS: 71045; 71046; 74177; 74420; 80305; 80320; 81001; 82040; 82247; 82310; 82374; 82435; 82565; 82947; 83690; 84075; 84132; 84155; 84295; 84450; 84460; 84484; 84520; 85025; 93005; 94640; 96361; 96374; 96375; 99284; A4338; C1758; C1769; C2617; G0378; J1100; J1170; J1885; J1956; J2001; J2270; J2405; J2704; J3010; J3360; J3490; J7030; J7120; J7613; Q9966; Q9967

== ENCOUNTER 2018-02-16 18:46 | Emergency (ER) | payer MEDICARE, MEDICAID ==
[2018-01-29 10:39] VITALS: Wt 79.4 kg
[~2018-02-16 18:46] MED LIST changes: +CEPH500T7 PO; +HYDR-6016 PO; +OMEP-125 PO; +OXYB10TA21 PO; +PHEN200T32 PO; +ZIPR40CA12 PO
--- NOTE | 2018-02-16 18:57 | ER Report ---
History and Physical Time Seen By MD: 18:56 HPI/ROS CHIEF COMPLAINT: Right lower quadrant abdominal pain hematuria HISTORY OF PRESENT ILLNESS: Patient is a 52-year-old male here with complaints of right lower quadrant abdominal pain and hematuria after lifting a heavy object approximately 0900 hrs. this morning. Patient reportedly had a right ureteral stent placement on January 28 and was supposed to have the stent removed on Tuesday. Patient reports that he had dark red blood passage in his urine with the associated pain after lifting the object. Patient is well-appearing at time of reevaluation, hemodynamically stable, denies lightheadedness, dizziness, blurred vision, fevers or chills. REVIEW OF SYSTEMS: Constitutional: No fever, no chills. Eyes: No discharge. ENT: No sore throat. Cardiovascular: No chest pain, no palpitations. Respiratory: No cough, no shortness of breath. Gastrointestinal: + RLQ abdominal pain, no vomiting. Genitourinary: + hematuria. Musculoskeletal: No back pain. Skin: No rashes. Neurological: No headache. Allergies: Coded Allergies: Penicillins (Verified Allergy, Unknown, 02/16/18) Home Meds Active Scripts Ziprasidone Hcl (ZIPRASIDONE HCL) 40 Mg Capsule, 40 MG PO BID, #60 CAPSULE Prov:KEZIA PATEL MD 02/08/18 Reported Medications Ciprofloxacin Hcl (CIPROFLOXACIN HCL) 500 Mg Tablet, 500 MG PO Q12H, #20 TAB 02/20/18 Phenazopyridine Hcl (PHENAZOPYRIDINE HCL) 200 Mg Tablet, 200 MG PO TID Y for BURNING WITH URINATION, #30 TAB 02/20/18 Famotidine (FAMOTIDINE) 20 Mg Tablet, 20 MG PO BID, #20 TAB 02/20/18 Acetaminophen/Hydrocodone (HYDROCODON-ACETAMINOPH 7.5-325) 1 Each Ea, 1 EACH PO Q4-6H Y for PAIN, #30 EA 02/20/18 Discontinued Reported Medications Oxybutynin Chloride (DITROPAN XL) 10 Mg Tab.er.24, 10 MG PO QDAY, TAB 02/16/18 Cephalexin 500 Mg Tab (KEFLEX 500 MG TAB) 500 Mg Tablet, 500 MG PO Q6H, #50 TAB 01/31/18 Phenazopyridine Hcl (PHENAZOPYRIDINE HCL) 200 Mg Tablet, 200 MG PO TID, #30 TAB 01/31/18 Discontinued Scripts Sulfamethoxazole/Trimet 800-160 Mg Tab (BACTRIM DS TABLET) 1 Each Tablet, 1 TAB PO Q12H for 7 Days, #14 TAB Prov:SURJIT STEVEN DO 02/16/18 Omeprazole (OMEPRAZOLE) 40 Mg Capsule.dr, 40 MG PO QDAY, #60 CAP 6 Refills Prov:KEZIA PATEL MD 02/08/18 Hx Smoking: No Smoking Status: Never Smoker Hx Substance Use Disorder: No Hx Alcohol Use: No Constitutional Physical Exam General Appearance: The patient is alert, has no immediate need for airway protection and no signs of toxicity. No acute distress Eyes: Pupils equal and round no pallor or injection. ENT, Mouth: Mucous membranes are moist. Respiratory: There are no retractions, lungs are clear to auscultation. Cardiovascular: Regular rate and rhythm. Gastrointestinal: Abdomen is soft and + mildly tender in the right lower quadrant, no masses, bowel sounds normal. Neurological: No focal neurological deficits Skin: Warm and dry, no rashes. Musculoskeletal: Neck is supple non tender. Extremities are nontender, nonswollen and have full range of motion. DIFFERENTIAL DIAGNOSIS: After history and physical exam differential diagnosis was considered for ureteral stent movement, stone passage, urinary tract infection, trauma, hernia Medical Decision Making Data Points Laboratory Hematology Test 02/16/18 19:05 02/16/18 19:40 Red Blood Count 5.25 M/uL (4.00-5.60) Mean Corpuscular Volume 81.2 fL (80.0-96.0) Mean Corpuscular Hemoglobin 27.4 pg (26.0-33.0) Mean Corpuscular Hemoglobin Concent 33.7 g/dL (32.0-36.0) Red Cell Distribution Width 14.4 % (11.5-14.5) Mean Platelet Volume 7.2 fL (7.2-11.1) Neutrophils (%) (Auto) 72.0 % (39.4-72.5) Lymphocytes (%) (Auto) 16.7 % (17.6-49.6) Monocytes (%) (Auto) 9.4 % (4.1-12.4) Eosinophils (%) (Auto) 1.6 % (0.4-6.7) Basophils (%) (Auto) 0.3 % (0.3-1.4) Nucleated RBC Relative Count (auto) 0.0 /100WBC Neutrophils # (Auto) 11.1 K/uL (2.0-7.4) Lymphocytes # (Auto) 2.6 K/uL (1.3-3.6) Monocytes # (Auto) 1.4 K/uL (0.3-1.0) Eosinophils # (Auto) 0.2 K/uL (0.0-0.5) Basophils # (Auto) 0.0 K/uL (0.0-0.1) Nucleated RBC Absolute Count (auto) 0.00 K/uL Peripheral Blood Smear Yes Y/N Sodium Level 141 mmol/L (137-145) Potassium Level 3.9 mmol/L (3.5-5.0) Chloride Level 106 mmol/L (98-107) Carbon Dioxide Level 22 mmol/L (22-30) Blood Urea Nitrogen 27 mg/dl (9-21) Creatinine 1.20 mg/dl (0.66-1.25) Glomerular Filtration Rate Calc > 60.0 Random Glucose 102 mg/dl (75-110) Calcium Level 8.8 mg/dl (8.4-10.2) Total Bilirubin 0.5 mg/dl (0.2-1.3) Aspartate Amino Transf (AST/SGOT) 40 U/L (0-35) Alanine Aminotransferase (ALT/SGPT) 32 U/L (0-56) Alkaline Phosphatase 74 U/L (0-126) Total Protein 7.1 g/dl (6.3-8.2) Albumin 4.3 g/dl (3.5-5.0) Urine Color Red Urine Clarity Cloudy Urine pH 6.0 pH (4.8-9.5) Urine Specific [place] 1.021 Urine Protein 100 mg/dL (NEGATIVE) Urine Glucose (UA) 50 mg/dL (NEGATIVE) Urine Ketones 20 mg/dL (NEGATIVE) Urine Blood Large (NEGATIVE) Urine Nitrite Negative (NEGATIVE) Urine Bilirubin Negative (NEGATIVE) Urine Urobilinogen Negative mg/dL (0.2-1.9) Urine Leukocyte Esterase Trace (NEGATIVE) Urine RBC 967 /HPF (0-2/HPF) Urine WBC 119 /HPF (0-5/HPF) Urine Squamous Epithelial Cells Many /LPF (</=FEW) Urine Bacteria Negative /HPF (NONE-FEW) Urine Mucus Few /HPF (NONE-FEW) Urine Yeast (Budding) Many /HPF Chemistry Test 02/16/18 19:05 02/16/18 19:40 White Blood Count 15.4 k/uL (4.5-11.0) Red Blood Count 5.25 M/uL (4.00-5.60) Hemoglobin 14.4 g/dL (14.0-18.0) Hematocrit 42.6 % (42.0-52.0) Mean Corpuscular Volume 81.2 fL (80.0-96.0) Mean Corpuscular Hemoglobin 27.4 pg (26.0-33.0) Mean Corpuscular Hemoglobin Concent 33.7 g/dL (32.0-36.0) Red Cell Distribution Width 14.4 % (11.5-14.5) Platelet Count 335 K/uL (150-450) Mean Platelet Volume 7.2 fL (7.2-11.1) Neutrophils (%) (Auto) 72.0 % (39.4-72.5) Lymphocytes (%) (Auto) 16.7 % (17.6-49.6) Monocytes (%) (Auto) 9.4 % (4.1-12.4) Eosinophils (%) (Auto) 1.6 % (0.4-6.7) Basophils (%) (Auto) 0.3 % (0.3-1.4) Nucleated RBC Relative Count (auto) 0.0 /100WBC Neutrophils # (Auto) 11.1 K/uL (2.0-7.4) Lymphocytes # (Auto) 2.6 K/uL (1.3-3.6) Monocytes # (Auto) 1.4 K/uL (0.3-1.0) Eosinophils # (Auto) 0.2 K/uL (0.0-0.5) Basophils # (Auto) 0.0 K/uL (0.0-0.1) Nucleated RBC Absolute Count (auto) 0.00 K/uL Peripheral Blood Smear Yes Y/N Glomerular Filtration Rate Calc > 60.0 Calcium Level 8.8 mg/dl (8.4-10.2) Total Bilirubin 0.5 mg/dl (0.2-1.3) Aspartate Amino Transf (AST/SGOT) 40 U/L (0-35) Alanine Aminotransferase (ALT/SGPT) 32 U/L (0-56) Alkaline Phosphatase 74 U/L (0-126) Total Protein 7.1 g/dl (6.3-8.2) Albumin 4.3 g/dl (3.5-5.0) Urine Color Red Urine Clarity Cloudy Urine pH 6.0 pH (4.8-9.5) Urine Specific [place] 1.021 Urine Protein 100 mg/dL (NEGATIVE) Urine Glucose (UA) 50 mg/dL (NEGATIVE) Urine Ketones 20 mg/dL (NEGATIVE) Urine Blood Large (NEGATIVE) Urine Nitrite Negative (NEGATIVE) Urine Bilirubin Negative (NEGATIVE) Urine Urobilinogen Negative mg/dL (0.2-1.9) Urine Leukocyte Esterase Trace (NEGATIVE) Urine RBC 967 /HPF (0-2/HPF) Urine WBC 119 /HPF (0-5/HPF) Urine Squamous Epithelial Cells Many /LPF (</=FEW) Urine Bacteria Negative /HPF (NONE-FEW) Urine Mucus Few /HPF (NONE-FEW) Urine Yeast (Budding) Many /HPF Urinalysis Test 02/16/18 19:40 Urine Color Red Urine Clarity Cloudy Urine pH 6.0 pH (4.8-9.5) Urine Specific [place] 1.021 Urine Protein 100 mg/dL (NEGATIVE) Urine Glucose (UA) 50 mg/dL (NEGATIVE) Urine Ketones 20 mg/dL (NEGATIVE) Urine Blood Large (NEGATIVE) Urine Nitrite Negative (NEGATIVE) Urine Bilirubin Negative (NEGATIVE) Urine Urobilinogen Negative mg/dL (0.2-1.9) Urine Leukocyte Esterase Trace (NEGATIVE) Urine RBC 967 /HPF (0-2/HPF) Urine WBC 119 /HPF (0-5/HPF) Urine Squamous Epithelial Cells Many /LPF (</=FEW) Urine Bacteria Negative /HPF (NONE-FEW) Urine Mucus Few /HPF (NONE-FEW) Urine Yeast (Budding) Many /HPF ED Course/Re-evaluation ED Course Patient is a 52-year-old male here with complaints of hematuria after lifting heavy object approximately 0900 hrs. this morning in the setting of a ureteral stent placement for kidney stone on January 28. Patient admits to having mild right lower quadrant abdominal pain without fevers or chills, nausea, vomiting, lightheadedness, blurred vision. Urinalysis was remarkable for leuk esterase in his white blood cell count was elevated with leukocytosis of 15,000 prompting treatment for suspected urinary tract infection with concurrent stent placement. Patient has follow-up on 02/[address] Treadwell. Patient was advised to return promptly if he developed fevers, chills, worsening abdominal pain. Patient voiced understanding of plan. Decision to Disposition Date: Feb 16, 2018 Decision to Disposition Time: 21:20 Depart Departure Latest Vital Signs Impression: Primary Impression: Hematuria Additional Impressions: Suprapubic pain UTI (urinary tract infection) Condition: Improved Disposition: HOME OR SELF-CARE Patient Instructions: Hematuria (ED), Urinary Tract Infection in Women (ED) Additional Instructions: Please follow-up with your urologist as scheduled. Please return promptly if you develop worsening symptoms, pain, fevers. Take 1 tablet of Bactrim twice daily for 7 days. Problem Qualifiers SURJIT STEVEN DO Feb 16, 2018 18:57
[2018-02-16] MEDS ORDERED: KETOROLAC 30 MG/ML VIAL IM ONE (19:05)
[2018-02-16] MEDS ORDERED: KETOROLAC 30 MG/ML VIAL IVP ONE (19:20)
[2018-02-16 19:22] LABS: PLATELET COUNT, AUTOMATED 335 K/uL (150-450)
[2018-02-16] MEDS ORDERED: SULF-198 PO (21:04)
[2018-02-16] MEDS ORDERED: TRIMETH/SULFA DS 160-800MG TAB PO ONE (21:05)
[2018-02-16 21:26] VITALS: BP 134/85
== END 2018-02-16 21:29 | disposition home or self-care (01) ==
LOC: ER 18:58
DX: N30.01 Acute cystitis with hematuria (principal)
CPT/HCPCS: 81001; 85025; 96374; 99283; A9270; J1885; 82040; 82247; 82310; 82374; 82435; 82565; 82947; 84075; 84132; 84155; 84295; 84450; 84460; 84520

== ENCOUNTER 2018-02-20 01:24 | Day surgery (SDC) | payer MEDICARE, MEDICAID ==
[2018-01-29 10:39] VITALS: Ht 160 cm; Wt 76.7 kg
[~2018-02-20] VITALS: Ht 160 cm; Wt 76.7 kg
[~2018-02-20 01:24] MED LIST changes: +SULF-198 PO
[2018-02-20 06:45] VITALS: BP 111/84
[2018-02-20] MEDS ORDERED: FAMOTIDINE 20 MG TAB PO ONE (07:05)
[2018-02-20] MEDS ORDERED: fentaNYL CITR 100 MCG/2 ML AMP ONE ×3 (07:29→13:23)
[2018-02-20] MEDS ORDERED: PROPOFOL EMUL(*) 10MG/ML 20 ML 20 ML ONE (07:29)
[2018-02-20] MEDS ORDERED: DEXAMETHASONE SOD 4 MG/ML VIAL ONE (07:29)
[2018-02-20] MEDS ORDERED: ONDANSETRON 4 MG/2 ML VIAL ONE ×2 (07:29→13:49)
[2018-02-20] MEDS ORDERED: LIDOCAINE MPF 1% 5 ML VIAL ONE (07:29)
--- NOTE | 2018-02-20 07:37 | RADIOLOGY IMAGING REPORT ---
FACILITY: [facility] [place] PATIENT NAME: Celso Pérez : 1965 MR: [id number] V: [id number] EXAM DATE: ORDERING PHYSICIAN: SAMUEL HUDSON TECHNOLOGIST: Location: [facility] Patient: Celso Pérez : 1965 Visit/Account:[id number] Date of Sevice: 02/20/2018 KUB SINGLE VIEW ABDOMEN HISTORY: PREOP RIGHT ESWL KUB. Comparison made to a CT scan from 01/28/2018 FINDINGS: Double-J ureteral stent within the right ureter. There is no obvious stones along the course of the u reter. I do not see a distinct stone within either kidney. Nonspecific bowel gas pattern. Surgical ch anges compatible abdominal hernia repair IMPRESSION: 1. KUB with right double-J ureteral stent. Report Dictated By: Delfino Esparza MD at 02/20/2018 7:27 AM Report E-Signed By: Delfino Epsarza MD at 02/20/2018 7:33 AM WSN:[id number]
[2018-02-20] MEDS ORDERED: LEVOFLOXACIN/D5W*500 MG/100 ML 100 ML IVPB ONE (07:55)
[2018-02-20] MEDS ORDERED: LIDOCAINE/SOD BICARB 8.4% SYR ID ONE (07:55)
[2018-02-20] MEDS ORDERED: NORMOSOL R SOLN(*) 1000 ML BAG 1,000 ML IV PRN (07:55)
[2018-02-20] MEDS ORDERED: GENTAMICIN(*) 80 MG/2 ML VIAL 160 MG in NS(*) 0.9% 100 ML BAG 100 ML IVPB ONE (07:55)
[2018-02-20] MEDS ORDERED: MIDAZOLAM 2 MG/2 ML VIAL IVP PRN (07:55)
[2018-02-20] MEDS ORDERED: IOPAMIDOL-200 50 ML VIAL IS ONE (09:53)
[2018-02-20] MEDS ORDERED: KETAMINE HCL 500 MG/10 ML VIAL ONE (10:04)
[2018-02-20] MEDS ORDERED: WATER FOR IRRIG,STERILE 3000ML IR ONE (10:45)
--- NOTE | 2018-02-20 11:15 | RADIOLOGY IMAGING REPORT ---
FACILITY: [facility] PATIENT NAME: Celso Pérez : 1965 MR: [id number] V: [id number] EXAM DATE: ORDERING PHYSICIAN: SAMUEL HUDSON TECHNOLOGIST: Location: [facility] [place] Patient: Celso Pérez : 1965 Visit/Account:[id number] Date of Sevice: 02/20/2018 Technique: C-ARM FLUORO 1 HR HISTORY: Hematuria Comparison studies: KUB February 20, 2018 FINDINGS: Multiple fluoroscopic images were obtained. There has been exchange of a right-sided inter nal ureteral stent. Air Kerma: 5.7 mGy IMPRESSION: 1. Intraoperative fluoroscopic radiographs as described above. Please see operative report for furt her details. Report Dictated By: Bry Bauman DO at 02/20/2018 11:07 AM Report E-Signed By: Bry Bauman DO at 02/20/2018 11:10 AM WSN:[email or web address]
[2018-02-20 13:59] VITALS: BP 116/73
[2018-02-20] MEDS ORDERED: HYDR-389 PO (14:23)
[2018-02-20] MEDS ORDERED: FAMO-67 PO (14:24)
[2018-02-20] MEDS ORDERED: PHEN200T32 PO (14:24)
[2018-02-20] MEDS ORDERED: CIPR-214 PO (14:29)
[2018-02-20 14:30] VITALS: BP 120/76
[2018-02-20] MEDS ORDERED: APAP/HYDROCODONE 325/7.5 TAB ONE (14:31)
[2018-02-20 15:07] VITALS: BP 132/74
[2018-02-20 15:09] VITALS: BP 119/79
--- NOTE | 2018-03-09 10:52 | OPERATIVE REPORT 1 ---
EVENT DATE: February 20, 2018 SURGEON: Harley Treadwell MD ANESTHESIOLOGIST: Kvng Castanon MD ANESTHESIA: General. PREOPERATIVE DIAGNOSES 1. Possible right ureterolithiasis. 2. Possible right renal lithiasis . POSTOPERATIVE DIAGNOSIS Right ureterolithiasis. PROCEDURES PERFORMED 1. Cystourethroscopy. 2. Right ureteral stent removal. 3. Right ureterorenoscopy. 4. Right external stent placement and subsequent removal. 5. Right extracorporeal shock wave lithotripsy of one stone. DESCRIPTION OF PROCEDURE Under general anesthetic, the patient was prepped and draped in the extended lithotomy position. The 21 panendoscope was admitted to through the urethra and into the bladder. No stones were visible in the bladder. The right ureteral stent was removed. Again, no stones were visible in the bladder. The ureterorenoscope passed through the urethra into the bladder & up the right collecting systems without any difficulty. On ascending and descending the right ureter, no stone was visualized. The external stent was placed and attached to a Kc with contrast. The patient was transferred to the stone treatment room for right extracorporeal shock wave lithotripsy. After localization, the stone in the inferior pole area in the right kidney was treated with a total of 3000 shocks, progressing from low to high k-V fairly slowly. Contrast was used to verify positioning. The external stent was removed at the conclusion of the procedure. The patient tolerated the procedure satisfactorily and returned to the recovery room in satisfactory condition. INDICATION FOR THE PROCEDURE This is a 52-year-old white male complaining of severe right ureterorenal colic who initially was seen prior to stent placement. Following the stent placement, he has done relatively well. The patient returns for reevaluation and therapy. That has been accomplished, see operative note for details. The patient will be ready for discharge home, alert and functional. He is to force fluids, 12 glasses of water per day. Activities are as tolerated. He is to continue his usual medications. Copy of instructions were give to the patient. He was sent home with a strainer. He is to strain all of his urine. He is to percuss his right kidney frequently to facilitate passing of stone particles. Copy of instructions for renal percussion were given to the patient. The patient was given my personal phone number to contact me if there was any problems or if unable to contact me to go to the ER. Plan followup in the office. Patient will be discharged home on his usual medications, antibiotic, Pepcid, Pyridium, Motrin and Tylenol #3 therapy. MTDD
[2018-03-15] MEDS ORDERED: OMEP40CA48 PO (15:02)
[2018-03-15] MEDS ORDERED: PANT40TA65 PO (15:02)
[2018-03-22] MEDS ORDERED: ZIPR80CA22 PO (10:42)
[2018-03-22] MEDS ORDERED: ZIPR20CA23 PO (10:42)
== END 2018-02-20 13:59 | disposition home or self-care (01) ==
LOC: OR 01:24
DX: N20.1 Calculus of ureter (principal)
CPT/HCPCS: 50590; 74018; 76000; 87088; A9270; C1769; C1894; J1100; J1580; J1956; J2001; J2250; J2405; J2704; J3010; J3490; J7050; Q9966

== ENCOUNTER → 2018-03-14 | Outpatient (CLI) | payer MEDICARE, MEDICAID ==
[2018-01-29 10:39] VITALS: BMI 32.6
[~2018-03-14] MED LIST changes: +CIPR-214 PO; +FAMO-67 PO; +HYDR-389 PO; +PANT40TA65 PO
--- NOTE | 2018-03-14 14:02 | RADIOLOGY IMAGING REPORT ---
FACILITY: [facility] PATIENT NAME: Celso Pérez : 1965 MR: [id number] V: [id number] EXAM DATE: ORDERING PHYSICIAN: SAMUEL HUDSON TECHNOLOGIST: Location: [facility] Patient: Celso Pérez : 1965 Visit/Account:[id number] Date of Sevice: 03/14/2018 Exam type: KUB SINGLE VIEW ABDOMEN History: Nephrolithiasis Comparison: February 20, 2018. Findings: Bowel gas pattern is nonspecific. There are postsurgical changes from abdominal hernia repair. Ther e is a double-pigtail right ureteral stent. The proximal portion of the pigtail appears more coiled than previously and projects over the medial aspect the right renal shadow. The distal pigtail proje cts over the bladder in the pelvis. No definite calcifications are seen along the course of the sten t nor over the renal shadows IMPRESSION: 1. As above Report Dictated By: Lena Vasquez MD at 03/14/2018 1:56 PM Report E-Signed By: Lena Vasquez MD at 03/14/2018 1:58 PM WSN:[email or web address]
== END ==
LOC: RAD 13:08
DX: Z98.890 Other specified postprocedural states (principal); Z96.0 Presence of urogenital implants
CPT/HCPCS: 74018

== ENCOUNTER 2018-03-16 00:35 | Day surgery (SDC) | payer MEDICARE, MEDICAID ==
[2018-01-29 10:39] VITALS: Ht 160 cm; Wt 76.7 kg
[~2018-03-16] VITALS: Ht 160 cm; Wt 76.7 kg
[2018-03-16 09:05] VITALS: BP 124/85
[2018-03-16] MEDS ORDERED: fentaNYL CITR 100 MCG/2 ML AMP ONE ×2 (09:21→11:47)
[2018-03-16] MEDS ORDERED: PROPOFOL EMUL(*) 10MG/ML 20 ML 20 ML ONE (09:22)
[2018-03-16] MEDS ORDERED: LIDOCAINE MPF 1% 5 ML VIAL ONE (09:22)
[2018-03-16] MEDS ORDERED: DEXAMETHASONE SOD PHOS 10MG/ML ONE (09:22)
[2018-03-16] MEDS ORDERED: ONDANSETRON 4 MG/2 ML VIAL ONE (09:22)
[2018-03-16] MEDS ORDERED: LEVOFLOXACIN/D5W*500 MG/100 ML 100 ML IVPB ONE (09:30)
[2018-03-16] MEDS ORDERED: MIDAZOLAM 2 MG/2 ML VIAL IVP PRN (09:35)
[2018-03-16] MEDS ORDERED: FAMOTIDINE 20 MG TAB PO ONE (09:35)
[2018-03-16] MEDS ORDERED: LIDOCAINE/SOD BICARB 8.4% SYR ID ONE (09:35)
[2018-03-16] MEDS ORDERED: NORMOSOL R SOLN(*) 1000 ML BAG 1,000 ML IV PRN (09:35)
[2018-03-16] MEDS ORDERED: KETAMINE HCL-NS 50 MG/5 ML SYR ONE (11:12)
[2018-03-16] MEDS ORDERED: HYDROCORTISONE 1% CR 28.35 GM TP ONE (11:16)
[2018-03-16] MEDS ORDERED: IOPAMIDOL-200 50 ML VIAL IS ONE (11:16)
[2018-03-16] MEDS ORDERED: KETOROLAC 30 MG/ML VIAL ONE (12:27)
[2018-03-16] MEDS ORDERED: CIPR-214 PO (12:58)
[2018-03-16] MEDS ORDERED: ACET-3017 PO (12:59)
[2018-03-16] MEDS ORDERED: FAMO20TA28 PO (13:00)
[2018-03-16 13:40] VITALS: BP 139/87
--- NOTE | 2018-03-16 13:40 | OPERATIVE REPORT 1 ---
EVENT DATE: March 16, 2018 SURGEON: Harley Treadwell MD ANESTHESIOLOGIST: Kaz Plata MD ANESTHESIA: General. PREOPERATIVE DIAGNOSIS 1. Possible residual right renal lithiasis and/or ureterolithiasis. 2. Right ureteral stent. POSTOPERATIVE DIAGNOSIS No evidence of ureteral or renal lithiasis except for a few small flecks. PROCEDURE PERFORMED 1. Cystourethroscopy. 2. Right ureteral stent removal. 3. Right ureterorenoscopy. DESCRIPTION OF PROCEDURE Under general anesthetic, the patient was prepped sand draped in the extended lithotomy position. The 21 panendoscope was admitted through the urethra and into the bladder. The urethra was normal. The prostate showed trilobar hyperplasia with obstruction. The bladder showed 4+ trabeculation. The stent was admitting from the ureteral orifice. No stones were visible in the bladder. The right ureteral stent was removed intact. No stones again were visible in the bladder. There was a few small flecks right at the ureteral meatus area but very small and floated away. The ureterorenoscope passed up the right collecting system without any difficulty. The kidney showed no evidence of residual lithiasis and the ureter, ascending and descending showed no evidence of urolithiasis. The ureterorenoscope was removed. The bladder was drained. The patient tolerated the procedure satisfactorily and returned to the recovery room in satisfactory condition. INDICATION FOR PROCEDURE This is a 52-year-old white male complaining of right ureterolithiasis. The stone was manipulated into the right kidney and the patient had subsequent follow up and extracorporeal shock wave lithotripsy. KUB shows no evidence of residual lithiasis preoperatively. The patient was so advised. The patient requested the stent removal with anesthetic relief. Planned ureterorenoscopy to insure that the stone has been resolved. That has been accomplished. See operative note for details. The patient will be ready for discharge home when alert and functional, to force fluids, 12 glasses of water per day. Activities are as tolerated. He is to continue his usual medications. He will be discharged on Cipro, Pepcid, and Tylenol #3 therapy in addition to his usual medications. MTDD
[2018-03-16 13:42] VITALS: BP 138/91
--- NOTE | 2018-03-16 13:52 | RADIOLOGY IMAGING REPORT ---
FACILITY: [facility] PATIENT NAME: Celso Pérez : 1965 MR: [id number] V: [id number] EXAM DATE: ORDERING PHYSICIAN: SAMUEL HUDSON TECHNOLOGIST: Location: [facility] Patient: Celso Pérez : 1965 Visit/Account:[id number] Date of Sevice: 03/16/2018 EXAMINATION: OR fluoroscopy films abdomen single view HISTORY: Stent removal, possible stones. COMPARISON: KUB from 03/14/2018. FLUOROSCOPY TIME: 0.01 minutes. DOSE: Cumulative dose (Ka,r) was 1.92 mGy. FINDINGS: Single fluoroscopic image of the abdomen is obtained intraoperatively. Right ureteral jhonny nt is well-positioned on this image. IMPRESSION: Stent removal in progress. Please see the performing physician's notes for full details. Report Dictated By: Xiomara Euceda MD at 03/16/2018 1:45 PM Report E-Signed By: Xiomara Euceda MD at 03/16/2018 1:47 PM WSN:[email or web address]
[2018-03-16 14:00] VITALS: BP 123/92
[2018-03-16 14:22] VITALS: BP 129/87
[2018-03-16 14:24] VITALS: BP 140/88
[2018-03-22] MEDS ORDERED: ZIPR20CA23 PO (10:42)
[2018-03-22] MEDS ORDERED: ZIPR80CA22 PO (10:42)
== END 2018-03-16 12:20 | disposition home or self-care (01) ==
LOC: OR 00:35
DX: N20.0 Calculus of kidney (principal)
CPT/HCPCS: 52310; 76000; A9270; C1769; C1894; J1100; J1885; J1956; J2001; J2250; J2405; J2704; J3010; J3490; Q9966

== ENCOUNTER → 2018-03-28 | Outpatient (CLI) | payer MEDICARE, MEDICAID ==
[2018-01-29 10:39] VITALS: BMI 32.6
[~2018-03-28] MED LIST changes: +ACET-3017 PO; +FAMO20TA28 PO; +ZIPR20CA23 PO; +ZIPR80CA22 PO
[2018-03-28 14:41] LABS: LDL CHOLESTEROL 62 mg/dl
--- NOTE | 2018-03-28 14:41 | EKG ---
FACILITY: [facility] [place] PATIENT NAME: SAAD SANTIAGO : [id number] MR: [id number] V: [id number] EXAM DATE: ORDERING PHYSICIAN: KEZIA PATEL TECHNOLOGIST: Test Reason : Blood Pressure : / mmHG Vent. Rate : 087 BPM Atrial Rate : 087 BPM P-R Int : 142 ms QRS Dur : 090 ms QT Int : 364 ms P-R-T Axes : 049 027 027 degrees QTc Int : 438 ms Normal sinus rhythm Normal ECG Confirmed by Abraham Harrell ([id number]) on 03/28/2018 4:57:25 PM Referred By: Confirmed By:Abraham Dumont
[2018-03-28 14:42] LABS: PLATELET COUNT, AUTOMATED 274 K/uL (150-450)
== END ==
LOC: LAB 13:58
PROVIDERS: ATTEND Nurse Practitioner Psychiatric/Mental Health
DX: Z51.81 Encounter for therapeutic drug level monitoring (principal); Z79.899 Other long term (current) drug therapy
CPT/HCPCS: 36415; 82040; 82247; 82306; 82310; 82374; 82435; 82465; 82565; 82947; 83036; 83718; 84075; 84132; 84155; 84295; 84439; 84443; 84450; 84460; 84478; 84481; 84520; 85025; 93005

== ENCOUNTER → 2018-06-02 | Outpatient (CLI) | payer MEDICARE, MEDICAID ==
[2018-01-29 10:39] VITALS: BMI 32.6
[~2018-06-02] MED LIST changes: +CHOL100052 PO; +FLU60SYR36 IM
--- NOTE | 2018-06-02 09:01 | EKG ---
FACILITY: [facility] [place] PATIENT NAME: SAAD SANTIAGO : [id number] MR: [id number] V: [id number] EXAM DATE: ORDERING PHYSICIAN: KEZIA PATEL TECHNOLOGIST: KEN Robins Reason : CHEST PAIN Blood Pressure : / mmHG Vent. Rate : 081 BPM Atrial Rate : 081 BPM P-R Int : 142 ms QRS Dur : 088 ms QT Int : 360 ms P-R-T Axes : 047 036 032 degrees QTc Int : 418 ms Normal sinus rhythm Inferior infarct , age undetermined Abnormal ECG When compared with ECG of 28-MAR-2018 14:23, No significant change was found Confirmed by KEZIA PTAEL ([id number]) on 06/05/2018 1:54:18 PM Referred By: LENARD Confirmed By:KEZIA PATEL
== END ==
LOC: RESP 08:30
PROVIDERS: ATTEND Internal Medicine
DX: Z02.9 Encounter for administrative examinations, unspecified (principal)

== ENCOUNTER → 2018-10-10 | Outpatient (CLI) | payer MEDICARE, MEDICAID ==
[2018-01-29 10:39] VITALS: BMI 32.6
[~2018-10-10] MED LIST changes: +ONDA8TAB91 PO
[2018-10-10 16:52] LABS: PLATELET COUNT, AUTOMATED 310 K/uL (150-450)
== END ==
LOC: LAB 16:27
PROVIDERS: ATTEND Nurse Practitioner Primary Care
DX: R11.10 Vomiting, unspecified (principal)
CPT/HCPCS: 36415; 82040; 82150; 82247; 82310; 82374; 82435; 82565; 82947; 83690; 84075; 84132; 84155; 84295; 84450; 84460; 84520; 85025

== ENCOUNTER 2018-11-16 12:38 | Emergency (ER) | payer MEDICARE, MEDICAID ==
[2018-01-29 10:39] VITALS: Wt 83.9 kg
--- NOTE | 2018-11-16 12:48 | ER Report ---
History and Physical Time Seen By MD: 12:48 Hx. of Stated Complaint: PT REPORTS R LOWER DENTAL PAIN THAT STARTED YESTERDAY HPI/ROS CHIEF COMPLAINT: Right-sided dental pain and swelling HISTORY OF PRESENT ILLNESS: 53-year-old male patient presents to emergency room with complaint of right-sided dental pain and swelling. Patient states this started yesterday. He states it is fine yesterday morning and then yesterday afternoon started having some swelling and pain. Patient states he is able to eat but does have some discomfort with that. He denies any fevers, chills, nausea, vomiting or diarrhea. Patient states he does not have a dentist which he sees. He also states that he and his daughter are moving to [place] in approximately one week. Patient rates his pain a 6 out of 10 at this moment, however last night he rated the pain a 12 out of 10. Allergies: Coded Allergies: Penicillins (Verified Allergy, Unknown, 11/16/18) Home Meds Active Scripts Hydrocodone Bit/Acetaminophen (HYDROCODON-ACETAMINOPHEN 5-325) 1 Each Tablet, 1 EACH PO Q4-6H PRN for PAIN, #8 TAB Prov:RAMAN CHUN [facility] 11/16/18 Clindamycin Hcl (CLINDAMYCIN HCL) 300 Mg Capsule, 300 MG PO Q6H, #40 CAPSULE Prov:RAMAN CHUN [facility] 11/16/18 Omeprazole (OMEPRAZOLE) 40 Mg Capsule.dr, 40 MG PO BID, #60 CAP 0 Refills Prov:VÍCTOR PHILIP DNP, [facility]- 10/10/18 Reported Medications Ziprasidone Hcl (ZIPRASIDONE HCL) 20 Mg Capsule, 20 MG PO QDAY, CAPSULE 03/22/18 Discontinued Reported Medications Cholecalciferol (Vitamin D3) (VITAMIN D) 1,000 Unit Tablet, 1000 UNIT PO QDAY 06/02/18 Ziprasidone Hcl (ZIPRASIDONE HCL) 80 Mg Capsule, 80 MG PO QDAY, CAPSULE 03/22/18 Discontinued Scripts Ondansetron Hcl (ZOFRAN) 8 Mg Tablet, 1 TAB PO Q12H PRN for NAUSEA/VOMITING, #8 TAB 0 Refills Prov:VÍCTOR PHILIP DNP, [facility]- 10/10/18 Past Medical/Surgical History Patient has a past medical history of seizures, [place], asthma, pneumonia, Hsu's esophagitis, GERD, kidney stone, right hand fracture, bipolar. Patient has a surgical history of hernia repair 2, appendectomy, cystoscopy, stent placement, right hand surgery. Reviewed Nurses Notes: Yes Hx Smoking: No Smoking Status: Never Smoker Hx Substance Use Disorder: No Hx Alcohol Use: No Constitutional Vital Sign - Last 24 Hours 11/16/18 11/16/18 12:43 13:07 Temp 98.2 Pulse 94 88 Resp 16 16 B/P (MAP) 126/88 120/80 (93) Pulse Ox 91 91 O2 Delivery Room Air Room Air Physical Exam General appearance: Alert no distress. Respiratory: Chest is non tender, lungs are clear to auscultation. Cardiac: Regular rate and rhythm. ENT: Tympanic membranes are pearly-enriquez, auditory canals are patent, mixed membranes are moist. Patient does have swelling to the right side of cheek. Patient has teeth which are in poor repair, he is missing several teeth. Patient has tenderness to the right jawline. DIFFERENTIAL DIAGNOSIS: After history and physical exam differential diagnosis was considered for toothache, dental infection Medical Decision Making ED Course/Re-evaluation ED Course Patient was admitted to an exam room, history and physical were obtained. D ifferential diagnoses were considered. On examination patient does have swelling to the right side of the face. Patient has teeth which are in poor repair. With no obvious abscess to drain we'll go ahead and start him on antibiotics since limited amount of pain medication. I discussed this with patient who verbalized understanding and agreement. I did expressly informed him that he does need to follow-up with a dentist for definitive care. Decision to Disposition Date: Nov 16, 2018 Decision to Disposition Time: 13:03 Depart Departure Latest Vital Signs Vital Signs Date Time Temp Pulse Resp B/P (MAP) Pulse Ox O2 Delivery O2 Flow Rate FiO2 11/16/18 13:07 88 16 120/80 (93) 91 Room Air 11/16/18 12:43 98.2 Impression: Primary Impression: Tooth ache Condition: Improved Disposition: HOME OR SELF-CARE Referrals: KEZIA PATEL MD (PCP) New Scripts Hydrocodone Bit/Acetaminophen (HYDROCODON-ACETAMINOPHEN 5-325) 1 Each Tablet 1 EACH PO Q4-6H PRN for PAIN, #8 TAB Prov: RAMAN CHUN [employer] A[employer]LYST 11/16/18 Clindamycin Hcl (CLINDAMYCIN HCL) 300 Mg Capsule 300 MG PO Q6H, #40 CAPSULE Prov: RAMAN CHUN 11/16/18 Patient Instructions: Toothache (ED) Additional Instructions: Don't take and Tylenol in addition to the pain medication. Rinse mouth with warm salt water after every meal. Eat soft foods. Follow up with your dentist as soon as possible, call to make an appointment. Return to the ER if condition worsens. RAMAN CHUN Nov 16, 2018 12:48
[2018-11-16] MEDS ORDERED: HYDR-385 PO (13:01)
[2018-11-16] MEDS ORDERED: CLIN300C99 PO (13:01)
[2018-11-16 13:07] VITALS: BP 120/80
== END 2018-11-16 13:07 | disposition home or self-care (01) ==
LOC: ER 12:55
DX: K08.89 Other specified disorders of teeth and supporting structures (principal)
CPT/HCPCS: 99281